=== PATIENT | male | born 1990 | race Caucasian/White ===

== ENCOUNTER 2019-12-28 07:14 | Emergency (ER) | payer SELFPAY ==
[~2019-12-28] VITALS: Ht 177.8 cm; Wt 75.0 kg
[2019-12-28] MEDS ORDERED: SODIUM CHLORIDE 0.9% 1,000 ML IV ONE (07:28)
[2019-12-28] MEDS ORDERED: ONDANSETRON HCL 4MG/2ML INJ IV STA (07:28)
[2019-12-28 08:32] LABS: BASOPHILS % 0.6 % (0.0-2.0); EOSINOPHILS % 0.3 % (0.0-5.0); HEMATOCRIT. 42.6 % (42.0-52.0); MEAN CORPUSCULAR HEMOGLOBIN 23.8 pg (28.0-32.0); MEAN CORPUSCULAR VOLUME 72.4 fL (80.0-94.0); MEAN PLATELET VOLUME 8.5 fl (7.4-10.4); MONOCYTES % 13.6 % (2.0-8.0); NEUTROPHILS % 34.5 % (40.0-76.0); PLATELET 297 x1000/uL (130-400); RED BLOOD CELL COUNT 5.88 mill/uL (4.7-6.1); RED CELL DISTRIBUTION WIDTH 14.8 % (11.6-14.6)
[2019-12-28 08:41] LABS: CHLORIDE 107 mEq/L (98-107)
[2019-12-28 08:55] LABS: ETHANOL BLOOD 352 mg/dL
[2019-12-28 16:15] VITALS: BP 110/77
== END 2019-12-28 16:39 | disposition home or self-care (01) ==
LOC: ER 07:43
DX: T51.0X1A Toxic effect of ethanol, accidental (unintentional), initial encounter (principal); G92 Toxic encephalopathy; Y92.481 Parking lot as the place of occurrence of the external cause
CPT/HCPCS: 36415; 80053; 80320; 85025; 93005; 99285; J2405; J7030; G0480

== ENCOUNTER 2020-01-13 02:11 | Emergency (ER) | payer SELFPAY ==
[~2020-01-13] VITALS: Ht 177.8 cm; Wt 77.0 kg
[2020-01-13] MEDS ORDERED: KETOROLAC 30MG/ML VIAL IM ONE (02:45)
[2020-01-13 03:34] VITALS: BP 131/74
== END 2020-01-13 03:37 | disposition home or self-care (01) ==
LOC: ER 02:11
DX: M25.532 Pain in left wrist (principal)
CPT/HCPCS: 29125; 96372; 99283; J1885

== ENCOUNTER 2020-01-22 23:46 | Emergency (ER) | payer SELFPAY ==
[~2020-01-22] VITALS: Ht 177.8 cm; Wt 80.0 kg
[2020-01-22 23:48] VITALS: BP 117/87
[2020-01-23] MEDS ORDERED: FAMOTIDINE 20MG TABLET PO ONE (00:30)
[2020-01-23] MEDS ORDERED: PREDNISONE 20MG TABLET PO ONE (00:30)
[2020-01-23] MEDS ORDERED: DIPHENHYDRAMINE 50MG CAPSULE PO ONE (00:30)
== END 2020-01-23 02:52 | disposition home or self-care (01) ==
LOC: ER 23:46
DX: T78.40XA Allergy, unspecified, initial encounter (principal); J45.909 Unspecified asthma, uncomplicated; F12.10 Cannabis abuse, uncomplicated; F17.210 Nicotine dependence, cigarettes, uncomplicated; X58.XXXA Exposure to other specified factors, initial encounter
CPT/HCPCS: 99283

== ENCOUNTER 2020-01-23 04:30 | Emergency (ER) | payer SELFPAY ==
[~2020-01-23] VITALS: Ht 177.8 cm; Wt 80.0 kg
[2020-01-23 04:35] VITALS: BP 111/68
[2020-01-23] MEDS ORDERED: IBUPROFEN 600MG TABLET PO ONE (05:15)
== END 2020-01-23 05:07 | disposition left against medical advice (07) ==
LOC: ER 04:30
DX: Z53.21 Procedure and treatment not carried out due to patient leaving prior to being seen by health care provider (principal)

== ENCOUNTER 2023-12-30 03:54 | Emergency (ER) | payer MEDICAID ==
[~2023-12-30] VITALS: Ht 177.8 cm; Wt 84.0 kg
[2023-12-30 04:20] VITALS: O2SAT 100
[2023-12-30] MEDS ORDERED: DOXY100C5 MT (04:37)
[2023-12-30] MEDS ORDERED: SULF1TAB48 MT (04:37)
[2023-12-30 05:00] VITALS: BP 117/72; PULSE 90; RESP 17; TEMP 36.83628; O2SAT 97
== END 2023-12-30 05:02 | disposition home or self-care (01) ==
LOC: ER 03:54
DX: N48.21 Abscess of corpus cavernosum and penis (principal); F19.90 Other psychoactive substance use, unspecified, uncomplicated; F12.90 Cannabis use, unspecified, uncomplicated
CPT/HCPCS: 99283